=== PATIENT | male | born 1965 | race Caucasian/White ===

== ENCOUNTER 2017-05-24 16:56 | Emergency (ER) | payer OTHER ==
[~2017-05-24] VITALS: Ht 175.3 cm; Wt 85.3 kg
[~2017-05-24 16:56] MED LIST: ACETAMINOPHEN; ALBUTEROL INH IH; AMBIEN CR 6.26.25 MG PO; ASPIRIN325 PO; ATENOLOL-CHLOR1 EACH PO; BUSPAR15 MG PO; CHLORZOXAZONE500 MG PO; CITALOPRAM; NEURONTIN 300M300 M1 PO; PRIMIDONE50 MG PO; PROTONIX40 M2 PO; ZOCOR40 MG PO; ZOLOFT100 MG PO
[2017-05-24] MEDS ORDERED: AMOXICILLIN 50500 M1 PO (18:25)
[2017-05-24] MEDS ORDERED: PREDNISONE 20 M20 MG PO (18:25)
== END 2017-05-24 18:35 | disposition home or self-care (01) ==
LOC: ER 16:56
DX: J06.9 Acute upper respiratory infection, unspecified (principal); I10 Essential (primary) hypertension; F41.9 Anxiety disorder, unspecified; F32.9 Major depressive disorder, single episode, unspecified; K21.9 Gastro-esophageal reflux disease without esophagitis; F17.210 Nicotine dependence, cigarettes, uncomplicated; Z88.8 Allergy status to other drugs, medicaments and biological substances